=== PATIENT | female | born 1965 | race Two or more races ===

== ENCOUNTER 2019-11-30 20:13 | Emergency (ER) | payer OTHER ==
[~2019-11-30] VITALS: Ht 147.3 cm; Wt 64.4 kg
[2019-11-30] MEDS ORDERED: DIPHENHYDRAMINE 50 MG/ML, 1ML ONE (21:28)
[2019-11-30] MEDS ORDERED: KETOROLAC 30 MG/1 ML ONE (21:28)
[2019-11-30] MEDS ORDERED: PROCHLORPERAZINE 5 MG/ML, 2ML ONE (21:28)
[2019-11-30] MEDS ORDERED: OXYcodone/APAP 5/325MG TABLET PO ONE (21:30)
[2019-11-30] MEDS ORDERED: KETOROLAC 30 MG/1 ML IVPush ONE (21:30)
[2019-11-30] MEDS ORDERED: DIAZEPAM 5 MG TABLET PO ONE (21:30)
[2019-11-30] MEDS ORDERED: DIPHENHYDRAMINE 50 MG/ML, 1ML IVPush ONE (21:30)
[2019-11-30] MEDS ORDERED: PROCHLORPERAZINE 5 MG/ML, 2ML IVPush ONE (21:30)
[2019-11-30 21:46] VITALS: BP 154/79
== END 2019-11-30 23:09 | disposition home or self-care (01) ==
LOC: ED 20:49
DX: G44.219 Episodic tension-type headache, not intractable (principal)
CPT/HCPCS: 96374; 96375; 99284; J0780; J1200; J1885

== ENCOUNTER 2019-12-06 20:21 | Emergency (ER) | payer OTHER ==
[~2019-12-06] VITALS: Ht 152.4 cm; Wt 62.9 kg
[2019-12-06] MEDS ORDERED: PROCHLORPERAZINE 5 MG/ML, 2ML ONE (20:45)
[2019-12-06] MEDS ORDERED: KETOROLAC 30 MG/1 ML ONE (20:45)
[2019-12-06] MEDS ORDERED: DIPHENHYDRAMINE 50 MG/ML, 1ML ONE (20:45)
[2019-12-06 20:52] LABS: BASOPHILS # (AUTO) 0.03 x10^3/uL (0-0.1); BASOPHILS % (AUTO) 0 % (0-1); EOSINOPHILS # (AUTO) 0.14 x10^3/uL (0-0.4); EOSINOPHILS % (AUTO) 2 % (1-7); LYMPHOCYTES # (AUTO) 2.55 x10^3/uL (1-3.4); LYMPHOCYTES % (AUTO) 29 % (22-44); MD NO; MEAN CORPUSCULAR HEMOGLOBIN 28.6 pg (27.0-34.8); MEAN CORPUSCULAR VOLUME 86.5 fL (80-100); MEAN PLATELET VOLUME 7.5 fL (7.4-10.4); MONOCYTES # (AUTO) 0.57 x10^3/uL (0.2-0.8); MONOCYTES % (AUTO) 7 % (2-9); NEUTROPHILS # (AUTO) 5.57 x10^3/uL (1.8-6.8); NEUTROPHILS % (AUTO) 63 % (42-75); PLATELET COUNT 532 x10^3/uL (130-400); RED BLOOD COUNT 4.86 x10^6/uL (3.82-5.3); RED CELL DISTRIBUTION WIDTH 13.9 % (9.6-15.2)
[2019-12-06 21:00] LABS: ALBUMIN 3.5 g/dL (3.4-5.0); ANION GAP 8 mmol/L (5-15); CALCIUM 8.9 mg/dL (8.5-10.1); CHLORIDE 108 mmol/L (98-107); CREATININE 0.91 mg/dL (0.55-1.02)
[2019-12-06] MEDS ORDERED: PROCHLORPERAZINE 5 MG/ML, 2ML IVPush ONE (21:00)
[2019-12-06] MEDS ORDERED: KETOROLAC 30 MG/1 ML IVPush ONE (21:00)
[2019-12-06] MEDS ORDERED: DIPHENHYDRAMINE 50 MG/ML, 1ML IVPush ONE (21:00)
[2019-12-06] MEDS ORDERED: SODIUM CHLORIDE 0.9% 1,000ML IVBOLUS ONE (21:00)
[2019-12-06] MEDS ORDERED: SODIUM CHLORIDE FLUSH 10ML SYR IVF ONE (21:00)
--- NOTE | 2019-12-06 21:00 | NUR ---
PT UP TO RESTROOM. STEADY UPON AMBULATION TO AND FROM [facility]. PT AO X 4. SKIN WARM AND DRY. RESP EVEN AND UNLABORED. NO ACUTE DISTRESS NOTED. PT TO IMAGING VIA RHURST AT THIS TIME.
[2019-12-06 21:12] LABS: MICROSCOPIC AUTO
[2019-12-06 21:15] LABS: CULTURE INDICATED? YES
--- NOTE | 2019-12-06 21:25 | NUR ---
PT MEDICATED ORDERED BY ERMD FOR LU. PT REPORTS LU X 8 DAYS WITH INTERMITTENT BLURRED VISION AND NAUSEA. PT DENIES VOMITTING. PT WAS SEEN HERE FOR SAME APPROX 1 WEEK AGO. PT AO X 4. SKIN WARM AND DRY. PT ON CONT BP AND O2 MONITORS. CALL LIGHT WITHIN REACH. WILL CONT TO MONITOR PT.
--- NOTE | 2019-12-06 21:38 | NUR ---
PT REQUESTED AND WAS PROVIDED WITH WATER.
--- NOTE | 2019-12-06 21:58 | NUR ---
REPORT TO DEEJAY RAYMOND WHO ASSUMED CARE OF PT.
[2019-12-06 22:03] VITALS: BP 124/65
--- NOTE | 2019-12-06 22:03 | NUR ---
PT UP TO BR WITH STEADY GAIT. MONITORING REAPPLIED. CALL LIGHT WITHIN REACH, ALL SAFETY MEASURES IN PLACE, FAMILY AT BS FOR SUPPORT.
== END 2019-12-06 22:44 | disposition home or self-care (01) ==
LOC: ED 21:55
DX: N30.00 Acute cystitis without hematuria (principal); G43.C0 Periodic headache syndromes in child or adult, not intractable; R11.2 Nausea with vomiting, unspecified
CPT/HCPCS: 36415; 70450; 80048; 81001; 82040; 85025; 87086; 96361; 96374; 96375; 99284; J0780; J1200; J1885; J7030